=== PATIENT | male | born 1965 | race Caucasian/White ===

== ENCOUNTER → 2016-12-21 | Day surgery (SDC) | payer OTHER ==
[~2016-12-21] VITALS: Ht 167.6 cm; Wt 65.8 kg
[~2016-12-21] MED LIST: IBUPROFEN800 MG PO; NORCO 7.5-3251 EACH PO; PERCOCET 7.5-31 EACH PO; PRILOSEC OTC20 MG PO; TYLENOL 500 MG500 MG PO
[2016-12-21 12:40] LABS: HEMOGLOBIN 13.2 gm/dl (14.0-17.5); RED BLOOD COUNT 4.2 M/UL (4.20-5.50); WHITE BLOOD COUNT 7.4 K/UL (4.5-11.0)
[2016-12-21 12:55] LABS: BUN/CREATININE RATIO 16 (0-10)
== END | disposition home or self-care (01) ==
LOC: OR 08:15
PROVIDERS: Orthopaedic Surgery
PROC: 0QSG04Z Reposition Right Tibia with Internal Fixation Device, Open Approach (ICD-10-PCS; principal; 2016-12-21 08:15)
DX: S82.851A Displaced trimalleolar fracture of right lower leg, initial encounter for closed fracture (principal); J44.9 Chronic obstructive pulmonary disease, unspecified; M19.90 Unspecified osteoarthritis, unspecified site; Z79.1 Long term (current) use of non-steroidal anti-inflammatories (NSAID); F17.210 Nicotine dependence, cigarettes, uncomplicated; Z79.899 Other long term (current) drug therapy; X50.1XXA Overexertion from prolonged static or awkward postures, initial encounter
CPT/HCPCS: 36415; 73610; 76000; 80048; 85027; C1713; J0690; J1100; J2250; J2405; J3010; J7120